=== PATIENT | female | born 1995 | race African-American/Black ===

== ENCOUNTER 2021-07-17 19:31 | Emergency (ER) | payer BC ==
[~2021-07-17] VITALS: Ht 154.9 cm; Wt 40.0 kg
[~2021-07-17 19:31] MED LIST: BACTRIM DS TAB1 EACH PO; BIOTIN5000 MCG PO; CEPHALEXIN500 MG PO; CIPRO500 MG PO; EFFEXOR XR75 MG PO; MULTI VITAMIN1 EACH PO
[2021-07-17] MEDS ORDERED: DESVENLAFAXINE25 MG PO (19:47)
== END 2021-07-17 22:10 | disposition home or self-care (01) ==
LOC: ED 19:31
DX: U07.1 COVID-19 (principal); Z88.0 Allergy status to penicillin; Z88.2 Allergy status to sulfonamides
CPT/HCPCS: 99284

== ENCOUNTER 2025-04-09 23:12 | Emergency (ER) | payer OTHER ==
[~2025-04-09] VITALS: Ht 154.9 cm; Wt 41.4 kg
[~2025-04-09 23:12] MED LIST changes: +DESVENLAFAXINE25 MG PO
[2025-04-09] MEDS ORDERED: HYDROQUINONE TOP (23:39)
[2025-04-09] MEDS ORDERED: SILVER SULFADIAZINE 400 GM HOME.PACK TOP ONE (23:45)
[2025-04-09] MEDS ORDERED: DIPHTH,PERTUSS(ACELL),TET VAC 0.5 ML SYRINGE IM ONE (23:45)
[2025-04-10 00:02] VITALS: BP 142/96
== END 2025-04-10 00:02 | disposition home or self-care (01) ==
LOC: ED 23:12
DX: T20.16XA Burn of first degree of forehead and cheek, initial encounter (principal); X10.2XXA Contact with fats and cooking oils, initial encounter; Z79.899 Other long term (current) drug therapy; Z88.0 Allergy status to penicillin; Z88.1 Allergy status to other antibiotic agents
CPT/HCPCS: 16000; 90471; 90715; 99283-25